=== PATIENT | female | born 1955 | race African-American/Black ===

== ENCOUNTER 2019-01-13 19:53 | Emergency (ER) | payer OTHER ==
[~2019-01-13] VITALS: Ht 152.4 cm; Wt 73.0 kg
[2019-01-13 23:18] VITALS: BP 125/72
== END 2019-01-13 23:19 | disposition home or self-care (01) ==
LOC: ER 19:53
DX: G89.29 Other chronic pain (principal); M54.5 Low back pain; L29.9 Pruritus, unspecified; F32.9 Major depressive disorder, single episode, unspecified; E11.9 Type 2 diabetes mellitus without complications; E78.00 Pure hypercholesterolemia, unspecified; I10 Essential (primary) hypertension; J44.9 Chronic obstructive pulmonary disease, unspecified; Z88.5 Allergy status to narcotic agent
CPT/HCPCS: 99283